=== PATIENT | female | born 1975 | race African-American/Black ===

== ENCOUNTER → 2016-10-27 | Outpatient (CLI) | payer OTHER ==
--- NOTE | ~2016-10-27 | MY29 ---
[facility] Service of [facility] & [facility] RADIOLOGY TEXT RESULTS PATIENT: TESHA ZAYAS LOCATION: [facility] : 77 UNIT #: [id number] AGE: [address]: Yoli Panchal APRN SEX: F ORDER DR: [id number] [facility] [address] [place], [place] [address] [id number] O MR#: [id number] Acc #: [id number] NAME: TESHA ZAYAS : 1975 SEX: F STUDY DATE/TIME: 10/27/2016 10:43 UNIT: [facility] ROOM: STUDY DESCRIPTION: MY MARICARMEN SCREENING W/ CAD BILAT Attending Physician: Yoli Panchal M.D. Ordering Physician: Yoli Panchal M.D. Primary Care Physician: Yoli Panchal M.D. MEDICAL IMAGING REPORT This report is preliminary unless electronic signature is present EXAMINATION Bilateral digital screening mammogram with CAD. DATE 10/27/2016 HISTORY No personal or family history of breast cancer or current complaints. COMPARISON Diagnostic bilateral mammogram and diagnostic bilateral breast ultrasound, 12/20/2011. FINDINGS CC and MLO views were obtained of each breast utilizing digital technique and reviewed with an FDA-approved CAD device. Heterogeneously dense fibroglandular tissue is present bilaterally, which can limit sensitivity of mammography. An approximately 1 cm round partially obscured nodular density is demonstrated within the lower outer right breast close to the 7 o'clock axis. A hypoechoic nodule seen within the 12 o'clock left breast on previous 2009 ultrasound, documented to be 1 cm from the nipple, has no abnormal correlate today. An island of fibroglandular tissue projecting over the left pectoral muscle, posterior nipple line, MLO view, is thought to be a stable finding since 2011. No suspicious cluster of microcalcification or architectural distortion is seen. IMPRESSION BIRADS 0. Additional imaging required. 1 cm round partially obscured nodule is seen near the 7 o'clock axis in the right breast, approximately 3 cm deep to the nipple. Benign etiology such as a cyst is suspected; however, this finding appears new or more conspicuous than on the [facility] A Service of [facility] & [facility] RADIOLOGY TEXT RESULTS PATIENT: TESHA ZAYAS LOCATION: [facility] #: [id number] : 77 UNIT #: [id number] AGE: [address]: Yoli Panchal APRN SEX: F ORDER DR: comparison study from 2011 and 2009. Targeted diagnostic right breast ultrasound recommended for further evaluation. Patients over the age of 40 are entered into a reminder system with target due date for the next mammogram. A result letter will also be sent to the patient. BIRADS: 0 Incomplete; Need additional imaging evaluation and/or prior mammograms for comparison. Dictated by... Gisella Rodriguez M.D. THIS IS AN ELECTRONICALLY VERIFIED REPORT Gisella Rodriguez M.D. at 11/02/2016 3:26 PM MELISA/gabriele TD: 10/29/2016 09:57 JOB #: [id number] MEDICAL IMAGING REPORT Page 1 of 1 COPY
== END | disposition home or self-care (01) ==
LOC: CWCC 10-26 10:30
DX: Z12.31 Encounter for screening mammogram for malignant neoplasm of breast (principal); N63 Unspecified lump in breast
CPT/HCPCS: G0202